=== PATIENT | female | born 1990 | race Two or more races ===

== ENCOUNTER 2024-01-03 10:21 | Emergency (ER) | payer OTHER ==
[2024-01-03] MEDS ORDERED: DIPHTH,PERTUSS(ACELL),TET 0.5 ML DISP.SYRIN IM ONE (11:10)
[2024-01-03] MEDS: DIPHTH,PERTUSS(ACELL),TET 0.5 ML DISP.SYRIN IM ONE (11:18)
[2024-01-03 11:28] VITALS: BP 117/81; PULSE 66; RESP 16; TEMP 98.4; BMI 25.4
== END 2024-01-03 11:45 | disposition home or self-care (01) ==
LOC: JER 10:21
PROC: 0XQLXZZ Repair Right Thumb, External Approach (ICD-10-PCS; principal; 2024-01-03)
PROC: 3E0234Z Introduction of Serum, Toxoid and Vaccine into Muscle, Percutaneous Approach (ICD-10-PCS; 2024-01-03)
DX: S61.011A Laceration without foreign body of right thumb without damage to nail, initial encounter (principal); W26.0XXA Contact with knife, initial encounter; Z23 Encounter for immunization
CPT/HCPCS: 12001-25; 90471; 90715; 99282-25